=== PATIENT | male | born 1955 | race Caucasian/White ===

== ENCOUNTER → 2016-05-06 | Outpatient (CLI) | payer OTHER ==
[~2016-05-06] MED LIST: ANSS RE; BND25CL PO; DOCU100C31 PO; FLUP10TA PO; IBUP-1427 PO; LEVO125T4 PO; MOUTHWASH; MULT-506 PO; PHENSUP RE; PRAMCRE2; PRAMCRE2 TOP; TAMS0.4C38 PO; [UNRECOGNIZED DRUG - CODE]; prolixin IM
--- NOTE | 2016-05-06 12:46 | DIAGNOSTIC IMAGING REPORT ---
PET/CT HISTORY: Malignant neoplasm of anus. TECHNIQUE: PET/CT was performed from the base of the skull through the pelvis following the intravenous administration of 12.48 mCi of F18-FDG. Non-contrast CT imaging was performed over the same range without breath-hold for attenuation correction of PET images and anatomic correlation, but not for primary interpretation as it is not of standard diagnostic quality. CT DOSE: COMPARISON: None. FINDINGS: HEAD AND NECK: There is no FDG-avid disease or significant lymphadenopathy in the imaged portions of the head and the neck. Mild FDG uptake within the thyroid gland is likely physiologic. CHEST: There is no FDG-avid disease in the chest. There is no axillary, mediastinal, or hilar lymphadenopathy. There is no pleural or pericardial effusion. There is no air-space. Mild emphysema. There is a 6 x 4 mm nodule within the right middle lobe on image 103. This does not demonstrate abnormal FDG uptake but is likely below the threshold for PET imaging. No FDG avid pulmonary nodules are identified. ABDOMEN/PELVIS: Below the diaphragm, tracer is distributed physiologically in the gastrointestinal and genitourinary tracts. There is no significant lymphadenopathy. There is intense FDG uptake with the abnormal thickening of the distal rectum/anus. This is consistent with the patient's history of malignancy. The FDG avid mass measures a total length of 7.8 cm. Bladder is mildly distended. No pelvic lymphadenopathy identified. Moderate well-formed stool seen throughout the colon. Cholelithiasis.. MUSCULOSKELETAL: There is no FDG-avid or destructive bone lesion. IMPRESSION: 1. An intense FDG avid 7.8 cm mass at the distal rectum/anus consistent with the patient's history of malignancy. 2. An indeterminate 6 x 4 mm nodule within the right middle lobe which does not demonstrate abnormal FDG uptake. However, this could be below the threshold for PET imaging. Six-month chest CT follow-up is recommended to ensure stability. 3. Otherwise, no evidence for distant/metastatic disease. Electronically signed by: Issac Harris M.D. 05/06/2016 12:45 PM Dictated Date/Time: 05/06/2016 12:27 PM
== END | disposition home or self-care (01) ==
LOC: C.PET 08:49
DX: C21.0 Malignant neoplasm of anus, unspecified (principal); R91.8 Other nonspecific abnormal finding of lung field

== ENCOUNTER → 2016-05-17 | Outpatient (CLI) | payer OTHER ==
[~2016-05-17] VITALS: Ht 175.3 cm; Wt 71.5 kg
[2016-05-17 08:02] VITALS: BP 128/77; PULSE 76; TEMP 37; O2SAT 95
--- NOTE | 2016-05-17 10:02 | Radiation Oncology Consult ---
Radiation Oncology Consult Date / Reason May 17, 2016. Physicians Primary Care Provider: Waldo Schmidt PA-C at [facility] Medical Oncologist: Dr. Miller Radiation Oncologist: Dr. Chano Lopez Surgeon: Dr. Peguero Other Providers: Dr. 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 Santana in consultation at the request of the correctional facility and Dr. Toño Miller. The patient was accompanied by 2 correctional facility guards. ECOG PS: 0 Mr. Santana is a 60-year-old gentleman who recently presented with intermittent rectal bleeding for several days. The patient was initially thought to have hemorrhoids issues and the patient was to undergo resection of the hemorrhoids by Dr. Calhoun at [facility] on 04/12/2016 however the final pathology revealed invasive squamous cell carcinoma that was p16 positive. As per other medical records, the patient did go on to have a rigid sigmoid proctoscopy which did do not reveal any further evidence of disease. The patient subsequently did have a PET/CT scan completed on 05/06/2016 which reveals a 7.8 cm mass at the distal rectum/anus consistent with malignancy. Additionally, there is a 6 mm nodule within the right middle lobe with no significant FDG uptake and the radiologist recommended a six-month interval scan to confirm stability. Otherwise, there is no evidence of distant metastatic disease on the PET/CT scan. The patient was subsequently seen in consultation by Dr. Toño Miller for medical oncology was recommended consideration for pelvic chemotherapy and radiation therapy. Dr. Miller has recommended 5-FU and mitomycin-C chemotherapy. We are now seeing the patient in consultation. Overall, the patient states that he does have some minimal bleeding per rectum. He states that his stool caliber has changed overall. He does he does notice some discomfort with bowel movements. Pacemaker Hx Pacemaker: No Past History Specify Any Cancer Diagnosis: Anal cancer 04/12/16 Other Pertinent Information: Hypothyroidism Paranoid Schizophrenia Hepatitis C Surgical History Surgeries & Dates: Left hernia repair Sigmoidoscopy Surgery on left index finger - machine accident Tonsils Radiation History History of Radiation Therapy: None Chemotherapy History History of Chemotherapy: None Family History Mother living 79yo breast cancer, depression, alzheimers Father living 80yo DM, HTN 1 brother living pt unsure of his health history 1 sister living healthy 1 brother living healthy Pt never had children Social History Smoking Status: Current Every Day Smoker Hx Tobacco Use In Past Year?: Yes (1 PPD since 1977) Do You Dip or Chew Tobacco: No Hx Alcohol Use: Yes (Prior to incarceration in 1999) Hx Substance Use : No (Prior to incarceration;Multpile sources.) 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, 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, 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 Marital Status: Single Allergies Coded Allergies: NO KNOWN DRUG ALLERGIES (Unverified Allergy, Unknown, ., 12/02/15) Home Medications Scheduled Diphenhydramine HCl (Diphenhydramine HCl), 25 MG PO HS Docusate Sodium (Docusate Sodium), 2 CAP PO DAILY Ibuprofen Tab (Motrin), 1 TAB PO TID Levothyroxine Sodium (Levothyroxine Sodium), 1 TAB PO DAILY Phenylephrine In Hard Fat (Ashley-Med), RE QID Tamsulosin Hcl (Flomax), 1 CAP PO DAILY [prolixin], 50 MG IM DIRECTED Scheduled PRN Phenylephrine In Hard Fat (Tronolane), 1 SUPP RE QID PRN for Hemorrhoids Zllgwnesj-Wydxbenhqxnww-Ezahsz (Preparation H), 1 APPLN TOP QID PRN for Hemorrhoids Miscellaneous Medications Ijddoslss-Izqyfsciznspz-Pfjyop (Preparation H) Review of Systems Extremities: Within Normal Limits: Yes Hx Falls: No Swelling in Legs: No Hx Deep Vein Thrombosis: No Pain in Legs while Walking: No Head: Headaches: No Dizziness: No Eyes: Within Normal Limits: Yes Hx Cataracts: No Hx Diplopia: No Hx Glaucoma: No Wear Glasses: Yes Throat: Symptoms: Difficulty Swallowing Gastrointestinal: GI Comments: Rectal spotting w/wiping;Keeps stools very loose to pass; Usual Bowel Pattern: External periarea tenderness; Use of Laxatives: No - How Often: Using stool softners, MOM;Using preparation H Use Of Enemas: No Edema: Present?: No Urinary: Symptoms: WNL Comments: 3-4 voids/night;More urgency since stopping flomax; Respiratory: Symptoms: WNL, Dry Cough Comments: AM cough;nonproductive Psychological: Symptoms: Calm Skin: Within Normal Limits: No Nutrition: Involuntary Weight Loss (lbs): 0 Home Diet: Regular diet Anyone Available To Assist: Yes Physical Exam ECOG Performance Status: 0 Height: 5 (Feet) 9.00 (Inches) 175.3 (Centimeters) 1.7526 (Meters) Weight: 157 (Pounds) 10.1 (Ounces) 71.500 (Kilograms) 10206.000 (Grams) Date Time Temp Pulse Resp B/P Pulse Ox O2 Delivery O2 Flow Rate FiO2 05/17/16 08:02 37.0 76 20 128/77 95 General Appearance: no apparent distress Head: normocephalic Eyes: normal inspection, EOMI ENT: normal ENT inspection, hearing grossly normal Respiratory/Chest: lungs clear, no respiratory distress, no accessory muscle use Cardiovascular: regular rate, rhythm, no gallop, no murmur Abdomen/GI: non tender, soft, + pertinent finding (palpable groin adenopathy noted on the left with a measurement of 1-1.5.) Back: no CVA tenderness Extremities: no pedal edema Neurologic/Psych: no motor/sensory deficits, alert, normal mood/affect Skin: warm/dry Lymphatic: + inguinal node abnormality Additional Exam Comments: Rectal examination reveals a protruding mass in the perianal area not involving the anal margin skin. This is proximally 4 x 3 cm. Very tender to palpation. Currently no rectal bleeding. The mass extends up into the rectum to the tip of the examination finger per Dr. Lopez. Pathology Pathology results: were reviewed Imaging Imaging studies: were reviewed, and pertinent findings noted below Imaging Comments Patient: TA SANTANA [id number] Address1: [facility] Rec: [id number] Address2: [address] ID: [id number] [facility] Zip: [place] [address] Date: 1955 Sex: M Room/Bed: Ref Phy: SC: SELENE Att Phy: Barbara Cheng M.D. Report #: [id number] Sindy Phy: [facility] Test: PETCTST Admit Phy: Rice Drier: GUILLERMINA Interpreting Phy: Issac Harris MD Diagnosis: C21 MALIGNANT NEOPLASM ANUS Ordering Phy: Barbara Cheng M.D. Service Date: 05/06/16 Admit Date: 05/06/16 MNE: [id number] CONF: DICTATED BY: Issac Harris M.D.]] CC: Barbara Cheng M.D. [facility]: [~ rep ct add3]] PET/CT HISTORY: Malignant neoplasm of anus. TECHNIQUE: PET/CT was performed from the base of the skull through the pelvis following the intravenous administration of 12.48 mCi of F18-FDG. Non-contrast CT imaging was performed over the same range without breath-hold for attenuation correction of PET images and anatomic correlation, but not for primary interpretation as it is not of standard diagnostic quality. CT DOSE: COMPARISON: None. FINDINGS: HEAD AND NECK: There is no FDG-avid disease or significant lymphadenopathy in the imaged portions of the head and the neck. Mild FDG uptake within the thyroid gland is likely physiologic. CHEST: There is no FDG-avid disease in the chest. There is no axillary, mediastinal, or hilar lymphadenopathy. There is no pleural or pericardial effusion. There is no air-space. Mild emphysema. There is a 6 x 4 mm nodule within the right middle lobe on image 103. This does not demonstrate abnormal FDG uptake but is likely below the threshold for PET imaging. No FDG avid pulmonary nodules are identified. ABDOMEN/PELVIS: Below the diaphragm, tracer is distributed physiologically in the gastrointestinal and genitourinary tracts. There is no significant lymphadenopathy. There is intense FDG uptake with the abnormal thickening of the distal rectum/anus. This is consistent with the patient's history of malignancy. The FDG avid mass measures a total length of 7.8 cm. Bladder is mildly distended. No pelvic lymphadenopathy identified. Moderate well-formed stool seen throughout the colon. Cholelithiasis.. MUSCULOSKELETAL: There is no FDG-avid or destructive bone lesion. IMPRESSION: 1. An intense FDG avid 7.8 cm mass at the distal rectum/anus consistent with the patient's history of malignancy. 2. An indeterminate 6 x 4 mm nodule within the right middle lobe which does not demonstrate abnormal FDG uptake. However, this could be below the threshold for PET imaging. Six-month chest CT follow-up is recommended to ensure stability. 3. Otherwise, no evidence for distant/metastatic disease. Electronically signed by: Issac Harris M.D. 05/06/2016 12:45 PM Dictated Date/Time: 05/06/2016 12:27 PM Assessment & Recommendations Mr. Santana is a 60-year-old gentleman who presents with locally advanced anal cancer (T3N0M0, stage IIB). The patient was seen in consultation by Dr. Toño Miller from medical oncology who is recommended pelvic chemotherapy and radiation therapy. We are now seeing the patient in consultation discuss the role of radiation therapy. Today, we did discuss the NCCN guidelines for the management of definitive anal cancer. I have recommended pelvic chemotherapy and radiation therapy in agreement with Dr. Toño Miller. We will bring the patient back for CT simulation for treatment planning. In great detail, we did discuss the indications, alternatives, benefits, risks and side effects of external beam radiation therapy to the pelvis. We did discuss the short-term side effects which are including but not limited to, skin erythema, skin breakdown, desquamation, moist desquamation, fistula formation, increased urinary symptoms, increased bowel, symptoms diarrhea. We did also discussed long-term side effects which are including, but not limited to, rectal incontinence, urinary incontinence, secondary malignancy, decreased sexual function, impotency, fistula formation, skin tear, bleeding, infection, wound healing issues. We did also reviewed the treatment procedures involved with radiation therapy. The patient understands and is willing to consent to treatment. The patient had multiple questions which were answered to their full satisfaction. Thank you for allowing us to participate in the care of this patient. This chart was completed in part utilizing [employer] Speech Voice Recognition software. Attempts were made to minimize the grammatical errors, random word insertions, pronoun errors and incomplete sentences. Any formal questions or concerns about the content, text or information contained within the body of this dictation should be directly addressed to the provider for clarification. Chano Lopez MD Department of Radiation Oncology [facility] Konstantin Jha [facility] Total Time In Consultation I spent 20 minutes speaking the patient performing examination. I spent 15 minutes reviewing information please this note. AK I spent 30 minutes examining and counseling the patient. I spent 15 minutes completing this note. 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
== END | disposition home or self-care (01) ==
LOC: C.ONC 08:52
PROVIDERS: ATTEND Internal Medicine Hematology & Oncology
DX: C44.520 Squamous cell carcinoma of anal skin (principal)

== ENCOUNTER → 2016-06-07 | Day surgery (SDC) | payer OTHER ==
[~2016-06-07] VITALS: Ht 172.7 cm; Wt 72.0 kg
[~2016-06-07] MED LIST changes: -FLUP10TA PO
[2016-06-07 08:35] VITALS: BP 136/83; PULSE 77; TEMP 37.1; O2SAT 96; Ht 172.7 cm; Wt 72.0 kg
== END | disposition home or self-care (01) ==
LOC: C.MTU 08:35
PROVIDERS: ATTEND Internal Medicine Critical Care Medicine
DX: C18.9 Malignant neoplasm of colon, unspecified (principal); C61 Malignant neoplasm of prostate; E03.9 Hypothyroidism, unspecified; F20.9 Schizophrenia, unspecified; K59.00 Constipation, unspecified; K62.5 Hemorrhage of anus and rectum; K64.9 Unspecified hemorrhoids; N40.0 Benign prostatic hyperplasia without lower urinary tract symptoms

== ENCOUNTER 2016-06-10 09:43 | Inpatient (IN) | payer OTHER ==
[~2016-06-10] VITALS: Ht 172.7 cm; Wt 69.8 kg
[2016-06-10] VITALS (10 sets, daily range): BP systolic 92–149; BP diastolic 54–83; PULSE 54–61; TEMP 36.6–36.8; O2SAT 95–98
[~2016-06-10 09:43] MED LIST changes: -ANSS RE; -MOUTHWASH; -MULT-506 PO; -PHENSUP RE; -TAMS0.4C38 PO
--- NOTE | 2016-06-10 13:15 | History and Physical ---
History & Physical Date & Time of Service: Jun 10, 2016 at 13:01 Chief Complaint: Anal Cancer, Chemotherapy Primary Care Physician: Barbara Cheng M.D. History of Present Illness Source: patient This is a 60 yo M with PMHx of schizophrenia, anal carcinoma, hypothyroidism, constipation, hemorrhoids, BPH w/ LUTS without obstruction who presents from OSH for chemotherapy regimen. He is incarcerated at [facility] . He had a PICC line placed on 06/07/16 in his RUE. The patient is up to the floor after his first treatment of radiation therapy, states it went well. He denies any complaints currently. He has a history of bowel movements streaked with blood, last BM was this morning. He denies any abdominal pain, cramping, nausea or vomiting. He's anticipating starting chemotherapy tonight. Past Medical/Surgical History Medical Problems: Anal Carcinoma Schizophrenia Hypothyroidism Constipation Hemorrhoids BPH w/ LUTs Status: Chronic Social History Smoking Status: Current Every Day Smoker Smokeless Tobacco Use: No Alcohol Use: none Drug Use: none Marital Status: single Housing status: other (incarcerated) Occupational Status: other (detained) Allergies Coded Allergies: NO KNOWN DRUG ALLERGIES (Unverified Allergy, Unknown, ., 06/07/16) Home Medications Scheduled Diphenhydramine HCl (Diphenhydramine HCl), 25 MG PO HS Docusate Sodium (Docusate Sodium), 2 CAP PO DAILY Ibuprofen Tab (Motrin), 1 TAB PO TID Levothyroxine Sodium (Levothyroxine Sodium), 1 TAB PO DAILY Sdsfptekm-Qvtalbsdthttd-Erfhgn (Hemorrhoidal), prn [prolixin], 25 MG IM q2wks Scheduled PRN Eofyfkram-Awtpyhelvtsex-Qaiory (Preparation H), 1 APPLN TOP QID PRN for Hemorrhoids Miscellaneous Medications Vpiaouxhd-Muufuijbitmce-Cjkrao (Preparation H) Review of Systems Constitutional: No chills, No fatigue, No fever, No sweats Eyes: No redness ENT: No sore throat, No trouble swallowing Respiratory: No cough, No shortness of breath Cardiovascular: No chest pain, No palpitations Abdomen: + GI bleeding (See HPI), No constipation, No diarrhea, No nausea, No pain, No vomiting Musculoskeletal: No calf pain, No joint pain Genitourinary - Male: No dysuria, No hematuria Psychiatric: + problem reported (schitzophrenia) Endocrine: No excessive thirst, No excessive urination, No fatigue Integumentary: No itch, No rash Physical Exam Vital Signs Date Time Temp Pulse Resp B/P Pulse Ox O2 Delivery O2 Flow Rate FiO2 06/10/16 12:44 36.6 61 18 92/54 96 Room Air General Appearance: WD/WN, no apparent distress, + thin Head: normocephalic, atraumatic Eyes: PERRL, EOMI ENT: hearing grossly normal, pharynx normal, + pertinent finding (poor dentition, mucous membranes moist) Neck: supple, no JVD Respiratory/Chest: chest non-tender, lungs clear, no respiratory distress, no accessory muscle use Cardiovascular: regular rate, rhythm, no edema, no JVD, no murmur Abdomen/GI: normal bowel sounds, non tender, soft, no organomegaly Back: normal inspection Extremities/Musculoskelatal: normal inspection, no calf tenderness Neurologic/Psych: alert, normal reflexes, oriented x 3 Skin: normal color, warm/dry Impression Assessment and Plan This is a 60 yo M with PMHx of schizophrenia, anal carcinoma, hypothyroidism, constipation, hemorrhoids, BPH w/ LUTS without obstruction who presents from OSH for chemotherapy regimen. He is incarcerated at [facility] . Anal Carcinoma Constipation Hemorrhoids - Oncology consulted - The patient follows with Genia Trejo as an outp - Scheduled to start mitomycin and 5-FU tonight - will need 4 days of the 5-FU because this requires a pump and he cannot have this in the penitentiary. - XRT started today. Will ask oncology about how long the course of radiation will be. - Continue colace prn for bowels, will add miralax and dulcolax prn - Regular diet - Antiemetics with zofran, compazine - Pt was counselled on getting radiation induced dermatitis, can use cream to alleviate pain/soreness if it develops. - PET CT was reviewed IMPRESSION: 1. An intense FDG avid 7.8 cm mass at the distal rectum/anus consistent with the patient's history of malignancy. 2. An indeterminate 6 x 4 mm nodule within the right middle lobe which does not demonstrate abnormal FDG uptake. However, this could be below the threshold for PET imaging. Six-month chest CT follow-up is recommended to ensure stability. 3. Otherwise, no evidence for distant/metastatic disease. Hypothyroidism - Continue levothyroxine 125 mcg daily Schitzophrenia - Receives prolixin deconate 37.5 mg as an outpatient every other week. Last injection was on 06/05. BPH wih LUTS without obstruction - Continue SURGICAL DENTAL ASSISTANT medications DVT PPX: Teds, SCDs Disposition: From correctional institution, return after chemotherapy course and when medically stable. PA Physician Supervision Note: I interviewed and examined the patient. Discussed with Fide Brown PAC and agree with findings and plan as documented in the note. Any exceptions or clarifications are listed here: None PT here for chemo for anal carcinoma, is also involved Rad Onc XRT no active complaints vss abd is soft and non tender For chemo per protocol Documented By: Abiodun Shaver Level of Care Med/Surg Resuscitation Status FULL RESUSCITATION VTE Prophylaxis VTE Risk Assessment Done? Y/N: Yes Risk Level: Low Given or contraindicated: T.E.D. Stockings, SCD's
[2016-06-10] MEDS ORDERED: ONDANSETRON INJ 2 MG/ML 2 ML VIAL IV PRN (14:45)
[2016-06-10] MEDS ORDERED: ACETAMINOPHEN 500 MG TAB PO PRN (14:45)
[2016-06-10] MEDS ORDERED: PROMETHAZINE HCL INJ 25 MG in SODIUM CHLORIDE 0.9% 50ML 50 ML IV PRN (14:45)
[2016-06-10] MEDS ORDERED: BISACODYL 5 MG TABEC PO PRN (14:45)
[2016-06-10] MEDS ORDERED: POLYETHYLENE (MIRALAX) 17 GM PACK PO PRN (14:45)
--- NOTE | 2016-06-10 15:15 | Oncology Consultation ---
Oncology/Heme Consultation Date of Consultation: Jun 10, 2016. Attending Physician: Shola Rascon D.O. Reason for Consultation: Squamous cell invasive anal carcinoma History of Present Illness is a 60-year-old inmate at [facility] that states that he has had hemorrhoidal issues for the past 2 years. Bleeding was noted to persist and according to notes the lesion around the anus became much larger. A biopsy did show invasive squamous cell carcinoma. The notes also reflect that originates sigmoidoscopy was performed to 24 cm revealing no further abnormalities. A PET/CT scan confirmed a 7.8 cm mass in the distal rectal/anal area and he is admitted now for systemic therapy with radiation. Radiation has begun today. His past medical history is really unremarkable other than a history of schizophrenia. Past Medical/Surgical History Anal carcinoma Family History Negative for history of cancer in the family Social History Negative for significant smoking or alcohol usage. He does admit to IV drug abuse 17 years ago. He states he has been HIV tested and is negative. The timing of that test is unknown. Smoking Status: Current Every Day Smoker Housing Status: other Occupation Status: other (detained) Allergies Coded Allergies: NO KNOWN DRUG ALLERGIES (Unverified Allergy, Unknown, ., 06/07/16) Home Medications Scheduled Diphenhydramine HCl (Diphenhydramine HCl), 25 MG PO HS Docusate Sodium (Docusate Sodium), 2 CAP PO DAILY Ibuprofen Tab (Motrin), 1 TAB PO TID Levothyroxine Sodium (Levothyroxine Sodium), 1 TAB PO DAILY Sapaoyyju-Yrkccnhvimlfm-Mtusfo (Hemorrhoidal), prn [prolixin], 25 MG IM q2wks Scheduled PRN Mdongdjax-Nhlojueiepjlu-Jlfpzq (Preparation H), 1 APPLN TOP QID PRN for Hemorrhoids Miscellaneous Medications Pfosudtga-Mdhgdaujvxqzf-Fihfce (Preparation H) Current Inpatient Medications Current Inpatient Medications Medications (Trade) Dose Ordered Sig/Lucho Route Start Time Stop Time Status Last Admin Dose Admin Diphenhydramine HCl (Benadryl Cap) 25 mg HS PO 06/10/16 21:00 07/10/16 20:59 Docusate Sodium (coLACE CAP) 200 mg DAILY PO 06/11/16 08:00 07/11/16 07:59 Ibuprofen (Motrin Tab) 600 mg TID PO 06/10/16 14:00 07/10/16 13:59 Levothyroxine Sodium (Synthroid Tab) 125 mcg DAILYBB PO 06/11/16 06:30 07/11/16 06:29 Miscellaneous Information (Order Awaiting Action) 1 ea QS N/A 06/10/16 13:15 07/10/16 13:14 Ondansetron HCl 4 mg 4 mg Q4H PRN IV 06/10/16 14:45 07/10/16 14:44 Promethazine HCl/ Sodium Chloride (Phenergan Inj/ Nss 50ml) 51 ml @ 204 mls/hr Q6H PRN IV 06/10/16 14:45 07/10/16 14:44 Acetaminophen (Tylenol Tab) 500 mg Q4 PRN PO 06/10/16 14:45 07/10/16 14:44 Polyethylene (Miralax Powder Packet) 17 gm DAILY PRN PO 06/10/16 14:45 07/10/16 14:44 Bisacodyl (Dulcolax Tab) 5 mg DAILY PRN PO 06/10/16 14:45 07/10/16 14:44 Ondansetron HCl (Zofran Tab) 16 mg TODAY@1700 PO 06/10/16 17:00 06/10/16 23:00 Dexamethasone 10 mg 10 mg TODAY@1700 PO 06/10/16 17:00 06/10/16 23:00 Mitomycin 18 mg/ Sodium Chloride 118 ml @ 236 mls/hr TODAY@1730 IV 06/10/16 17:30 06/10/16 19:00 Fluorouracil/ Sodium Chloride (Fluorouracil/ Nss 1000ml) 1,038 ml @ 43.285 mls/ hr DAILY@1800 IV 06/10/16 18:00 06/14/16 17:59 Review of Systems Constitutional: Negative for weight loss, night sweats, or fever Eyes: Negative for event change of vision ENT: Negative for epistaxis, nasal discharge, sore throat, or deafness Cardiovascular: Negative for chest pain, palpitations, dizziness, diaphoresis Respiratory: Negative for new shortness of breath,hemoptysis, or purulent cough Gastrointestinal: Negative for diarrhea, hematemesis, melena, nausea, vomiting , or dyspepsia Integumentary (skin): Negative for rash or jaundice discoloration Genitourinary: Negative for urinary frequency, hematuria, or dysuria Neurological: Negative for weakness, seizure activity, headache, or dizziness Lymphatic/Hematologic: Negative for petechiae, bleeding or new adenopathy Musculoskeletal: Negative for new joint or back pain Allergic/Immunologic: Negative for unusual rash or pruritis. Physical Exam Date Time Temp Pulse Resp B/P Pulse Ox O2 Delivery O2 Flow Rate FiO2 06/10/16 14:38 36.7 54 16 112/72 97 06/10/16 13:30 36.6 61 18 92/54 Room Air 06/10/16 12:44 36.6 61 18 92/54 96 Room Air Constitutional: vitals are stable. Eyes: Eyes are BEYN EOMI without conjuctival erythema or icterus. ENT: External examination was negative for masses. Neck: Negative for masses or palpable thyromegaly Respiratory: Lung sounds were generally clear bilaterally Cardiovascular: Heart was RRR without significant murmur, gallops aoe rubs Gastrointestinal: No palpable hepatic or splenomegaly. The abdomen was soft with normal bowel sounds. Lymphatic system: there was no palpable peripheral lymphadenopathy Musculoskeletal System: The musculoskeletal system seemed concordant with age. Skin: The skin was negative for jaundice. Neurologic exam: The exam was negative for any focal findings. Deep tendon reflexes were equal and symmetrical. Psychiatric exam: Was essentially negative with normal mood and effect. Extremities: Negative for edema or erythema Assessment & Plan Anal carcinoma squamous cell invasive carcinoma that appears to be confined to the anal area. Recent bloodwork concluding CBC general chemistries are acceptable. A PICC line is in place in the right arm. Radiation has begun today and therapy with a 4 day infusion of 5-fluorouracil along with the one day of mitomycin was written today. Consent has been signed. I reviewed the drugs with him as given again IV with the major potential side effects of nausea diarrhea risk of fever or infection bleeding and hair loss and skin rash. His next therapy will be with 5- FU alone in about 4 weeks. He'll have a follow-up in our clinic
[2016-06-10 16:12] LABS: BASO % 0.3 %; BASO ABS # 0.02 K/uL (0-0.2); COMPLETE YES; HEMATOCRIT 37.2 % (42-52); IG% 0.3 %; LYMPH ABS # 1.76 K/uL (1.2-3.4); MEAN CELL VOLUME 83.8 fL (80-100); MEAN CORPUSCULAR HEMOGLOBIN 28.6 pg (25-34); MEAN CORPUSCULAR HGB CONC 34.1 g/dl (32-36); MEAN PLATELET VOLUME 8.1 fL (7.4-10.4); MONO % 10.4 %; PLATELET COUNT 186 K/uL (130-400); RED BLOOD COUNT 4.44 M/uL (4.7-6.1); WHITE BLOOD COUNT 6.53 K/uL (4.8-10.8)
[2016-06-10 16:35] LABS: BLOOD UREA NITROGEN 10 mg/dl (7-18); BUN/CREATININE RATIO 16.2 (10-20); CALCIUM 8.9 mg/dl (8.5-10.1); CARBON DIOXIDE 26 mmol/L (21-32); CHLORIDE 105 mmol/L (98-107); CREATININE 0.61 mg/dl (0.60-1.40); GLUCOSE 103 mg/dl (70-99); POTASSIUM 4.1 mmol/L (3.5-5.1); SODIUM 140 mmol/L (136-145)
[2016-06-10 16:55] LABS: PARTIAL THROMBOPLASTIN RATIO 1.1; PROTHROMBIN TIME (PATIENT) 10.7 SECONDS (9.0-12.0)
[2016-06-10] MEDS ORDERED: DEXAMETHASONE 4 MG TAB PO SCH (17:00)
[2016-06-10] MEDS ORDERED: ONDANSETRON 8 MG TAB PO SCH (17:00)
[2016-06-10] MEDS: IBUPROFEN 600 MG TAB PO SCH ×2 (17:11→20:26)
[2016-06-10] MEDS ORDERED: MITOMYCIN FOR IV SCH (17:30)
[2016-06-10] MEDS ORDERED: SODIUM CHLORIDE 0.9% IV SCH (17:30)
[2016-06-10] MEDS: SODIUM CHLORIDE 0.9% IV SCH (20:14)
[2016-06-10] MEDS: FLUOROURACIL IV SCH (20:14)
[2016-06-11] VITALS (7 sets, daily range): BP systolic 104–119; BP diastolic 20–72; PULSE 51–70; TEMP 36.7–36.9; O2SAT 95–98; Ht 172.7 cm; Wt 69.8 kg
[2016-06-11] MEDS: LEVOTHYROXINE 125 MCG TAB PO SCH (06:50)
[2016-06-11] MEDS: IBUPROFEN 600 MG TAB PO SCH ×3 (07:17→19:26)
--- NOTE | 2016-06-11 08:07 | Hematology/Oncology Prog Note ---
Hematology/Onc Progress Note Date of Service Jun 11, 2016. Diagnoses Anal carcinoma Medications Medications Administered Medications (Trade) Dose Ordered Sig/Lucho Route Start Time Stop Time Status Last Admin Dose Admin Diphenhydramine HCl (Benadryl Cap) 25 mg HS PO 06/10/16 21:00 07/10/16 20:59 06/10/16 21:53 25 MG Ibuprofen (Motrin Tab) 600 mg TID PO 06/10/16 14:00 07/10/16 13:59 06/11/16 07:17 600 MG Levothyroxine Sodium (Synthroid Tab) 125 mcg DAILYBB PO 06/11/16 06:30 07/11/16 06:29 06/11/16 06:50 125 MCG Ondansetron HCl (Zofran Tab) 16 mg TODAY@1700 PO 06/10/16 17:00 06/10/16 23:00 DC 06/10/16 17:10 16 MG Dexamethasone 10 mg 10 mg TODAY@1700 PO 06/10/16 17:00 06/10/16 23:00 DC 06/10/16 17:11 10 MG Mitomycin 18 mg/ Sodium Chloride 118 ml @ 236 mls/hr TODAY@1730 IV 06/10/16 17:30 06/10/16 19:00 DC 06/10/16 18:49 236 MLS/HR Fluorouracil/ Sodium Chloride (Fluorouracil/ Nss 1000ml) 1,038 ml @ 43.285 mls/ hr DAILY@1800 IV 06/10/16 18:00 06/14/16 17:59 06/10/16 20:14 43.285 MLS/HR Subjective He is doing well. Continues infused 5-FU ongoing mitomycin given yesterday and radiation will continue. He really offers no new complaints. Review of Systems: Constitutional: Negative for weight loss, night sweats, or fever Eyes: Negative for event change of vision Cardiovascular: Negative for chest pain, palpitations, dizziness, diaphoresis Respiratory: Negative for new shortness of breath,hemoptysis, or purulent cough Gastrointestinal: Negative for diarrhea, hematemesis, melena, nausea, vomiting , or dyspepsia Integumentary (skin): Negative for rash or jaundice discoloration Genitourinary: Negative for urinary frequency, hematuria, or dysuria Neurological: Negative for weakness, seizure activity, headache, or dizziness Lymphatic/Hematologic: Negative for petechiae, bleeding or new adenopathy Musculoskeletal: Negative for new joint or back pain Allergic/Immunologic: Negative for unusual rash or pruritis. Vital Signs Vital Signs Past 12 Hours Date Time Temp Pulse Resp B/P Pulse Ox O2 Delivery O2 Flow Rate FiO2 06/11/16 07:23 36.7 61 18 106/63 95 Room Air 06/11/16 04:14 36.8 66 20 107/68 96 Room Air 06/11/16 00:27 36.7 51 20 114/72 97 Room Air 06/11/16 00:14 Room Air 06/10/16 21:32 Room Air 06/10/16 20:15 36.7 20 149/83 98 Room Air Physical Exam Constitutional: vitals are stable. Eyes: Eyes are BENY EOMI without conjuctival erythema or icterus. ENT: External examination was negative for masses. Neck: Negative for masses or palpable thyromegaly Respiratory: Lung sounds were generally clear bilaterally Cardiovascular: Heart was RRR without significant murmur, gallops aoe rubs Gastrointestinal: No palpable hepatic or splenomegaly. The abdomen was soft with normal bowel sounds. Lymphatic system: there was no palpable peripheral lymphadenopathy Musculoskeletal System: The musculoskeletal system seemed concordant with age. Skin: The skin was negative for jaundice. Neurologic exam: The exam was negative for any focal findings. Deep tendon reflexes were equal and symmetrical. Psychiatric exam: Was essentially negative with normal mood and effect. Extremities: Negative for edema erythema Laboratory Last 24 Hours Test 06/10/16 15:36 06/10/16 15:59 06/11/16 07:49 Prothrombin Time 10.7 SECONDS Prothromb Time International Ratio 1.0 Activated Partial Thromboplast Time 28.3 SECONDS Partial Thromboplastin Ratio 1.1 White Blood Count 6.53 K/uL Red Blood Count 4.44 M/uL Hemoglobin 12.7 g/dL Hematocrit 37.2 % Mean Corpuscular Volume 83.8 fL Mean Corpuscular Hemoglobin 28.6 pg Mean Corpuscular Hemoglobin Concent 34.1 g/dl Platelet Count 186 K/uL Mean Platelet Volume 8.1 fL Neutrophils (%) (Auto) 58.0 % Lymphocytes (%) (Auto) 27.0 % Monocytes (%) (Auto) 10.4 % Eosinophils (%) (Auto) 4.0 % Basophils (%) (Auto) 0.3 % Neutrophils # (Auto) 3.79 K/uL Lymphocytes # (Auto) 1.76 K/uL Monocytes # (Auto) 0.68 K/uL Eosinophils # (Auto) 0.26 K/uL Basophils # (Auto) 0.02 K/uL RDW Standard Deviation 47.9 fL RDW Coefficient of Variation 15.6 % Immature Granulocyte % (Auto) 0.3 % Immature Granulocyte # (Auto) 0.02 K/uL Sodium Level 140 mmol/L Potassium Level 4.1 mmol/L Chloride Level 105 mmol/L Carbon Dioxide Level 26 mmol/L Anion Gap 9.0 mmol/L Blood Urea Nitrogen 10 mg/dl Creatinine 0.61 mg/dl Estimated GFR () 127.6 Estimated GFR (Non- 110.1 BUN/Creatinine Ratio 16.2 Random Glucose 103 mg/dl Calcium Level 8.9 mg/dl Assessment & Plan Anal carcinoma receiving 5-FU and mitomycin along with concurrent radiation therapy. Radiation therapy will continue today in addition. His baseline blood work is acceptable as is his exam today. Pain is not an issue. The 5-FU for 96 hours.
[2016-06-11] MEDS: DOCUSATE SODIUM 100 MG CAP PO SCH (08:16)
[2016-06-11 08:51] LABS: HEMATOCRIT 39.6 % (42-52); IG% 0.1 %; LYMPH % 7.9 %; LYMPH ABS # 0.72 K/uL (1.2-3.4); MEAN CELL VOLUME 81.5 fL (80-100); MEAN PLATELET VOLUME 7.9 fL (7.4-10.4); MONO % 3.1 %; NEUT % 88.9 %; PLATELET COUNT 197 K/uL (130-400); RED BLOOD COUNT 4.86 M/uL (4.7-6.1); WHITE BLOOD COUNT 9.14 K/uL (4.8-10.8)
[2016-06-11 09:12] LABS: BUN/CREATININE RATIO 12.7 (10-20); CALCIUM 9.4 mg/dl (8.5-10.1); CREATININE 0.83 mg/dl (0.60-1.40); POTASSIUM 4.2 mmol/L (3.5-5.1)
[2016-06-11 09:36] LABS: COMPLETE YES; MEAN CORPUSCULAR HGB CONC 34.3 g/dl (32-36)
--- NOTE | 2016-06-11 11:35 | Hospitalist Progress Note ---
Hospitalist Progress Note Date of Service Jun 11, 2016. Subjective Pt evaluation today including: conversation w/ patient, physical exam, chart review, lab review, review of studies, review of inpatient medication list Patient is undergoing chemo and radiation. Oncology is following. Patient reports no pain at this time. No nausea or vomiting. No chest pain and no SOB. Additional Comments: A 10 system review was performed and all were negative. Positives were placed in the subjective section. Objective Vital Signs Date Time Temp Pulse Resp B/P Pulse Ox O2 Delivery O2 Flow Rate FiO2 06/11/16 11:13 36.9 70 20 110/65 98 Room Air 06/11/16 08:00 Room Air 06/11/16 07:23 36.7 61 18 106/63 95 Room Air 06/11/16 04:14 36.8 66 20 107/68 96 Room Air 06/11/16 00:27 36.7 51 20 114/72 97 Room Air 06/11/16 00:14 Room Air 06/10/16 21:32 Room Air 06/10/16 20:15 36.7 20 149/83 98 Room Air 06/10/16 19:47 36.6 55 20 133/74 97 Room Air 06/10/16 19:09 36.7 60 20 110/69 95 Room Air 06/10/16 19:00 36.8 54 20 109/67 96 06/10/16 17:42 36.6 58 20 114/71 98 06/10/16 17:00 97 Room Air 06/10/16 15:49 36.7 58 18 121/73 97 Room Air 06/10/16 14:38 36.7 54 16 112/72 97 06/10/16 13:30 36.6 61 18 92/54 Room Air 06/10/16 12:44 36.6 61 18 92/54 96 Room Air Physical Exam Notes: GEN: Awake, alert, and oriented x 3. Not in acute distress HEENT: Tm's intact, no inflammation, EOMI, PERRLA, MMM Neck: Soft, supple Lungs: CTA b/l, no r/r/w Heart: REG, nrl S1S2 without murmurs, rubs or gallops Abdomen: Soft, NT, ND, + BS EXT: No C/C/E NEURO: CN's II-XII grossly intact, non-focal Skin: warm, dry, no rashes PSYCH: pleasant, cooperative. Laboratory Results Last 24 Hours Test 06/10/16 15:36 06/10/16 15:59 06/11/16 08:31 Prothrombin Time 10.7 SECONDS Prothromb Time International Ratio 1.0 Activated Partial Thromboplast Time 28.3 SECONDS Partial Thromboplastin Ratio 1.1 White Blood Count 6.53 K/uL 9.14 K/uL Red Blood Count 4.44 M/uL 4.86 M/uL Hemoglobin 12.7 g/dL 13.6 g/dL Hematocrit 37.2 % 39.6 % Mean Corpuscular Volume 83.8 fL 81.5 fL Mean Corpuscular Hemoglobin 28.6 pg 28.0 pg Mean Corpuscular Hemoglobin Concent 34.1 g/dl 34.3 g/dl Platelet Count 186 K/uL 197 K/uL Mean Platelet Volume 8.1 fL 7.9 fL Neutrophils (%) (Auto) 58.0 % 88.9 % Lymphocytes (%) (Auto) 27.0 % 7.9 % Monocytes (%) (Auto) 10.4 % 3.1 % Eosinophils (%) (Auto) 4.0 % 0.0 % Basophils (%) (Auto) 0.3 % 0.0 % Neutrophils # (Auto) 3.79 K/uL 8.13 K/uL Lymphocytes # (Auto) 1.76 K/uL 0.72 K/uL Monocytes # (Auto) 0.68 K/uL 0.28 K/uL Eosinophils # (Auto) 0.26 K/uL 0.00 K/uL Basophils # (Auto) 0.02 K/uL 0.00 K/uL RDW Standard Deviation 47.9 fL 45.9 fL RDW Coefficient of Variation 15.6 % 15.3 % Immature Granulocyte % (Auto) 0.3 % 0.1 % Immature Granulocyte # (Auto) 0.02 K/uL 0.01 K/uL Sodium Level 140 mmol/L 137 mmol/L Potassium Level 4.1 mmol/L 4.2 mmol/L Chloride Level 105 mmol/L 102 mmol/L Carbon Dioxide Level 26 mmol/L 27 mmol/L Anion Gap 9.0 mmol/L 8.0 mmol/L Blood Urea Nitrogen 10 mg/dl 11 mg/dl Creatinine 0.61 mg/dl 0.83 mg/dl Estimated GFR () 127.6 112.4 Estimated GFR (Non- 110.1 97.0 BUN/Creatinine Ratio 16.2 12.7 Random Glucose 103 mg/dl 165 mg/dl Calcium Level 8.9 mg/dl 9.4 mg/dl Est Creatinine Clear Calc Drug Dose 93.8 ml/min Assessment and Plan 1) Anal CA - undergoing inpatient chemo. Oncology note reports 96 hours of 5- FU. also receiving radiation while in house. 2) BPH - No new issues with this. 3) Schizophrenia - receives Prolixin IM q 2 weeks 4) Hypothyroidism - continue levothyroxine. DVT prophylaxis - TEDs and SCDs.
[2016-06-11] MEDS: FLUOROURACIL IV SCH (20:53)
[2016-06-11] MEDS: SODIUM CHLORIDE 0.9% IV SCH (20:53)
[2016-06-12] VITALS (8 sets, daily range): BP systolic 100–119; BP diastolic 60–70; PULSE 62–86; TEMP 36.5–36.8; O2SAT 94–97
[2016-06-12 05:33] LABS: BASO % 0.3 %; BASO ABS # 0.02 K/uL (0-0.2); COMPLETE YES; EOS % 1.2 %; HEMATOCRIT 35.8 % (42-52); IG% 0.1 %; LYMPH % 23.3 %; MEAN CELL VOLUME 83.8 fL (80-100); MEAN CORPUSCULAR HEMOGLOBIN 28.1 pg (25-34); MEAN CORPUSCULAR HGB CONC 33.5 g/dl (32-36); MEAN PLATELET VOLUME 8.3 fL (7.4-10.4); MONO % 7.5 %; NEUT % 67.6 %; PLATELET COUNT 166 K/uL (130-400); RED BLOOD COUNT 4.27 M/uL (4.7-6.1); WHITE BLOOD COUNT 7.31 K/uL (4.8-10.8)
[2016-06-12 06:12] LABS: BUN/CREATININE RATIO 20.4 (10-20); CREATININE 0.76 mg/dl (0.60-1.40); POTASSIUM 4.2 mmol/L (3.5-5.1)
[2016-06-12] MEDS: LEVOTHYROXINE 125 MCG TAB PO SCH (06:45)
[2016-06-12] MEDS: DOCUSATE SODIUM 100 MG CAP PO SCH (08:01)
[2016-06-12] MEDS: IBUPROFEN 600 MG TAB PO SCH ×3 (08:01→19:45)
--- NOTE | 2016-06-12 08:25 | Hematology/Oncology Prog Note ---
Hematology/Onc Progress Note Date of Service Jun 12, 2016. Diagnoses Anal carcinoma Medications Medications Administered Medications (Trade) Dose Ordered Sig/Lucho Route Start Time Stop Time Status Last Admin Dose Admin Diphenhydramine HCl (Benadryl Cap) 25 mg HS PO 06/10/16 21:00 07/10/16 20:59 06/11/16 20:58 25 MG Docusate Sodium (coLACE CAP) 200 mg DAILY PO 06/11/16 08:00 07/11/16 07:59 06/12/16 08:01 200 MG Ibuprofen (Motrin Tab) 600 mg TID PO 06/10/16 14:00 07/10/16 13:59 06/12/16 08:01 600 MG Levothyroxine Sodium (Synthroid Tab) 125 mcg DAILYBB PO 06/11/16 06:30 07/11/16 06:29 06/12/16 06:45 125 MCG Ondansetron HCl (Zofran Tab) 16 mg TODAY@1700 PO 06/10/16 17:00 06/10/16 23:00 DC 06/10/16 17:10 16 MG Dexamethasone 10 mg 10 mg TODAY@1700 PO 06/10/16 17:00 06/10/16 23:00 DC 06/10/16 17:11 10 MG Mitomycin 18 mg/ Sodium Chloride 118 ml @ 236 mls/hr TODAY@1730 IV 06/10/16 17:30 06/10/16 19:00 DC 06/10/16 18:49 236 MLS/HR Fluorouracil/ Sodium Chloride (Fluorouracil/ Nss 1000ml) 1,038 ml @ 43.285 mls/ hr DAILY@1800 IV 06/10/16 18:00 06/14/16 17:59 06/11/16 20:53 43.285 MLS/HR Subjective . He continues to do well. Denies nausea or vomiting. Continues infuse 5-FU is ongoing as is daily radiation Review of Systems: Constitutional: Negative for night sweats, or fever Eyes: Negative for event change of vision ENT: Negative for epistaxis, nasal discharge, sore throat, or deafness Cardiovascular: Negative for chest pain, palpitations, dizziness, diaphoresis Respiratory: Negative for new shortness of breath,hemoptysis, or purulent cough Gastrointestinal: Negative for diarrhea, hematemesis, melena, nausea, vomiting , or dyspepsia Integumentary (skin): Negative for rash or jaundice discoloration Genitourinary: Negative for urinary frequency, hematuria, or dysuria Neurological: Negative for weakness, seizure activity, headache, or dizziness Lymphatic/Hematologic: Negative for petechiae, bleeding or new adenopathy Musculoskeletal: Negative for new joint or back pain Allergic/Immunologic: Negative for unusual rash or pruritis. Vital Signs Vital Signs Past 12 Hours Date Time Temp Pulse Resp B/P Pulse Ox O2 Delivery O2 Flow Rate FiO2 06/12/16 07:41 36.5 86 18 109/70 96 Room Air 06/12/16 03:15 36.8 62 20 119/68 96 Room Air 06/12/16 01:00 Room Air 06/12/16 00:10 36.7 66 18 111/60 96 Room Air 06/11/16 20:45 36.8 70 18 104/58 96 Room Air Physical Exam Constitutional: vitals are stable. Eyes: Eyes are BENY EOMI without conjuctival erythema or icterus. ENT: External examination was negative for masses. Neck: Negative for masses or palpable thyromegaly Respiratory: Lung sounds were generally clear bilaterally Cardiovascular: Heart was RRR without significant murmur, gallops aoe rubs Gastrointestinal: No palpable hepatic or splenomegaly. The abdomen was soft with normal bowel sounds. Lymphatic system: there was no palpable peripheral lymphadenopathy Musculoskeletal System: The musculoskeletal system seemed concordant with age. Skin: The skin was negative for jaundice. Neurologic exam: The exam was negative for any focal findings. Deep tendon reflexes were equal and symmetrical. Psychiatric exam: Was essentially negative with normal mood and effect. Extremities: Negative for edema or erythema Laboratory Last 24 Hours Test 06/11/16 08:31 06/12/16 05:10 White Blood Count 9.14 K/uL 7.31 K/uL Red Blood Count 4.86 M/uL 4.27 M/uL Hemoglobin 13.6 g/dL 12.0 g/dL Hematocrit 39.6 % 35.8 % Mean Corpuscular Volume 81.5 fL 83.8 fL Mean Corpuscular Hemoglobin 28.0 pg 28.1 pg Mean Corpuscular Hemoglobin Concent 34.3 g/dl 33.5 g/dl Platelet Count 197 K/uL 166 K/uL Mean Platelet Volume 7.9 fL 8.3 fL Neutrophils (%) (Auto) 88.9 % 67.6 % Lymphocytes (%) (Auto) 7.9 % 23.3 % Monocytes (%) (Auto) 3.1 % 7.5 % Eosinophils (%) (Auto) 0.0 % 1.2 % Basophils (%) (Auto) 0.0 % 0.3 % Neutrophils # (Auto) 8.13 K/uL 4.94 K/uL Lymphocytes # (Auto) 0.72 K/uL 1.70 K/uL Monocytes # (Auto) 0.28 K/uL 0.55 K/uL Eosinophils # (Auto) 0.00 K/uL 0.09 K/uL Basophils # (Auto) 0.00 K/uL 0.02 K/uL RDW Standard Deviation 45.9 fL 48.5 fL RDW Coefficient of Variation 15.3 % 15.8 % Immature Granulocyte % (Auto) 0.1 % 0.1 % Immature Granulocyte # (Auto) 0.01 K/uL 0.01 K/uL Sodium Level 137 mmol/L 143 mmol/L Potassium Level 4.2 mmol/L 4.2 mmol/L Chloride Level 102 mmol/L 108 mmol/L Carbon Dioxide Level 27 mmol/L 28 mmol/L Anion Gap 8.0 mmol/L 7.0 mmol/L Blood Urea Nitrogen 11 mg/dl 16 mg/dl Creatinine 0.83 mg/dl 0.76 mg/dl Est Creatinine Clear Calc Drug Dose 93.8 ml/min 102.5 ml/min Estimated GFR () 112.4 116.6 Estimated GFR (Non- 97.0 100.6 BUN/Creatinine Ratio 12.7 20.4 Random Glucose 165 mg/dl 85 mg/dl Calcium Level 9.4 mg/dl 8.0 mg/dl Assessment & Plan Anal carcinoma receiving 5-FU and mitomycin along with concurrent radiation therapy. Day #2-3. He is doing well. I would like to see him get out of bed a little bit more at least sit in a bedside chair. Otherwise his blood work looks stable. I suspect we'll be done with his therapy about mid-day Friday. He 'll have a follow-up in our clinic in 3-4 weeks
--- NOTE | 2016-06-12 19:39 | Hospitalist Progress Note ---
Hospitalist Progress Note Date of Service Jun 12, 2016. Subjective Pt evaluation today including: conversation w/ patient no complaints All Other Systems: Reviewed and Negative Objective Vital Signs Date Time Temp Pulse Resp B/P Pulse Ox O2 Delivery O2 Flow Rate FiO2 06/12/16 15:22 95 Room Air 06/12/16 15:05 36.8 63 20 100/63 95 Room Air 06/12/16 11:42 36.8 73 20 102/65 94 Room Air 06/12/16 08:30 96 Room Air 06/12/16 07:41 36.5 86 18 109/70 96 Room Air 06/12/16 03:15 36.8 62 20 119/68 96 Room Air 06/12/16 01:00 Room Air 06/12/16 00:10 36.7 66 18 111/60 96 Room Air 06/11/16 20:45 36.8 70 18 104/58 96 Room Air 06/11/16 20:05 36.7 66 20 107/63 96 06/11/16 20:01 Room Air Physical Exam General Appearance: WD/WN, no apparent distress Eyes: normal inspection ENT: hearing grossly normal Neck: trachea midline Respiratory/Chest: chest non-tender, lungs clear Cardiovascular: regular rate, rhythm, no edema Abdomen: normal bowel sounds Extremities: normal range of motion Neurologic/Psychiatric: alert, normal mood/affect Laboratory Results Last 24 Hours Test 06/12/16 05:10 White Blood Count 7.31 K/uL Red Blood Count 4.27 M/uL Hemoglobin 12.0 g/dL Hematocrit 35.8 % Mean Corpuscular Volume 83.8 fL Mean Corpuscular Hemoglobin 28.1 pg Mean Corpuscular Hemoglobin Concent 33.5 g/dl Platelet Count 166 K/uL Mean Platelet Volume 8.3 fL Neutrophils (%) (Auto) 67.6 % Lymphocytes (%) (Auto) 23.3 % Monocytes (%) (Auto) 7.5 % Eosinophils (%) (Auto) 1.2 % Basophils (%) (Auto) 0.3 % Neutrophils # (Auto) 4.94 K/uL Lymphocytes # (Auto) 1.70 K/uL Monocytes # (Auto) 0.55 K/uL Eosinophils # (Auto) 0.09 K/uL Basophils # (Auto) 0.02 K/uL RDW Standard Deviation 48.5 fL RDW Coefficient of Variation 15.8 % Immature Granulocyte % (Auto) 0.1 % Immature Granulocyte # (Auto) 0.01 K/uL Sodium Level 143 mmol/L Potassium Level 4.2 mmol/L Chloride Level 108 mmol/L Carbon Dioxide Level 28 mmol/L Anion Gap 7.0 mmol/L Blood Urea Nitrogen 16 mg/dl Creatinine 0.76 mg/dl Est Creatinine Clear Calc Drug Dose 102.5 ml/min Estimated GFR () 116.6 Estimated GFR (Non- 100.6 BUN/Creatinine Ratio 20.4 Random Glucose 85 mg/dl Calcium Level 8.0 mg/dl Assessment and Plan (1) Anal carcinoma Assessment & Plan: will continue present tx (2) Advance care planning will discuss with patient prior to discharge
[2016-06-12] MEDS: FLUOROURACIL IV SCH (20:52)
[2016-06-12] MEDS: SODIUM CHLORIDE 0.9% IV SCH (20:52)
[2016-06-13] VITALS (7 sets, daily range): BP systolic 104–124; BP diastolic 68–80; PULSE 63–78; TEMP 36.4–36.9; O2SAT 95–97
[2016-06-13 05:37] LABS: BASO % 0.4 %; BASO ABS # 0.02 K/uL (0-0.2); COMPLETE YES; EOS % 3.7 %; HEMATOCRIT 36.4 % (42-52); IG% 0.2 %; LYMPH % 21.9 %; LYMPH ABS # 1.07 K/uL (1.2-3.4); MEAN CELL VOLUME 84.3 fL (80-100); MEAN CORPUSCULAR HEMOGLOBIN 28.5 pg (25-34); MEAN CORPUSCULAR HGB CONC 33.8 g/dl (32-36); MEAN PLATELET VOLUME 8.3 fL (7.4-10.4); MONO % 4.5 %; NEUT % 69.3 %; PLATELET COUNT 168 K/uL (130-400); RED BLOOD COUNT 4.32 M/uL (4.7-6.1); WHITE BLOOD COUNT 4.88 K/uL (4.8-10.8)
[2016-06-13] MEDS: LEVOTHYROXINE 125 MCG TAB PO SCH (05:54)
[2016-06-13] MEDS: DOCUSATE SODIUM 100 MG CAP PO SCH (06:06)
[2016-06-13 06:10] LABS: BUN/CREATININE RATIO 19.7 (10-20); CALCIUM 8.1 mg/dl (8.5-10.1); CREATININE 0.71 mg/dl (0.60-1.40); POTASSIUM 4.4 mmol/L (3.5-5.1)
[2016-06-13] MEDS: IBUPROFEN 600 MG TAB PO SCH ×3 (07:30→20:25)
--- NOTE | 2016-06-13 08:34 | Hematology/Oncology Prog Note ---
Hematology/Onc Progress Note Date of Service Jun 13, 2016. Diagnoses Anal carcinoma Medications Medications Administered Medications (Trade) Dose Ordered Sig/Lucho Route Start Time Stop Time Status Last Admin Dose Admin Diphenhydramine HCl (Benadryl Cap) 25 mg HS PO 06/10/16 21:00 07/10/16 20:59 06/12/16 21:04 25 MG Docusate Sodium (coLACE CAP) 200 mg DAILY PO 06/11/16 08:00 07/11/16 07:59 06/13/16 06:06 200 MG Ibuprofen (Motrin Tab) 600 mg TID PO 06/10/16 14:00 07/10/16 13:59 06/13/16 07:30 600 MG Levothyroxine Sodium (Synthroid Tab) 125 mcg DAILYBB PO 06/11/16 06:30 07/11/16 06:29 06/13/16 05:54 125 MCG Bisacodyl (Dulcolax Tab) 5 mg DAILY PRN PO 06/10/16 14:45 07/10/16 14:44 06/13/16 07:44 5 MG Ondansetron HCl (Zofran Tab) 16 mg TODAY@1700 PO 06/10/16 17:00 06/10/16 23:00 DC 06/10/16 17:10 16 MG Dexamethasone 10 mg 10 mg TODAY@1700 PO 06/10/16 17:00 06/10/16 23:00 DC 06/10/16 17:11 10 MG Mitomycin 18 mg/ Sodium Chloride 118 ml @ 236 mls/hr TODAY@1730 IV 06/10/16 17:30 06/10/16 19:00 DC 06/10/16 18:49 236 MLS/HR Fluorouracil/ Sodium Chloride (Fluorouracil/ Nss 1000ml) 1,038 ml @ 43.285 mls/ hr DAILY@1800 IV 06/10/16 18:00 06/14/16 17:59 06/12/16 20:52 43.285 MLS/HR Subjective Continues to do well. Tolerating the chemotherapy well. Has no new complaints Review of Systems: Constitutional: Negative for, night sweats, or fever Eyes: Negative for event change of vision ENT: Negative for epistaxis, nasal discharge, sore throat, or deafness Cardiovascular: Negative for chest pain, palpitations, dizziness, diaphoresis Respiratory: Negative for new shortness of breath,hemoptysis, or purulent cough Gastrointestinal: Negative for diarrhea, hematemesis, melena, nausea, vomiting , or dyspepsia Integumentary (skin): Negative for rash or jaundice discoloration Genitourinary: Negative for urinary frequency, hematuria, or dysuria Neurological: Negative for weakness, seizure activity, headache, or dizziness Lymphatic/Hematologic: Negative for petechiae, bleeding or new adenopathy Musculoskeletal: Negative for new joint or back pain Allergic/Immunologic: Negative for unusual rash or pruritis. Vital Signs Vital Signs Past 12 Hours Date Time Temp Pulse Resp B/P Pulse Ox O2 Delivery O2 Flow Rate FiO2 06/13/16 07:56 36.8 72 16 112/72 97 Room Air 06/13/16 00:13 36.7 66 20 111/68 96 Room Air 06/13/16 00:01 Room Air 06/12/16 21:05 Room Air 06/12/16 20:53 36.8 72 18 100/65 97 Room Air Physical Exam Constitutional: vitals are stable. Eyes: Eyes are BENY EOMI without conjuctival erythema or icterus. ENT: External examination was negative for masses. Neck: Negative for masses or palpable thyromegaly Respiratory: Lung sounds were generally clear bilaterally Cardiovascular: Heart was RRR without significant murmur, gallops aoe rubs Gastrointestinal: No palpable hepatic or splenomegaly. The abdomen was soft with normal bowel sounds. Lymphatic system: there was no palpable peripheral lymphadenopathy Musculoskeletal System: The musculoskeletal system seemed concordant with age. Skin: The skin was negative for jaundice. Neurologic exam: The exam was negative for any focal findings. Deep tendon reflexes were equal and symmetrical. Psychiatric exam: Was essentially negative with normal mood and effect. Extremities: Negative for edema or erythema Laboratory Last 24 Hours Test 06/13/16 05:04 White Blood Count 4.88 K/uL Red Blood Count 4.32 M/uL Hemoglobin 12.3 g/dL Hematocrit 36.4 % Mean Corpuscular Volume 84.3 fL Mean Corpuscular Hemoglobin 28.5 pg Mean Corpuscular Hemoglobin Concent 33.8 g/dl Platelet Count 168 K/uL Mean Platelet Volume 8.3 fL Neutrophils (%) (Auto) 69.3 % Lymphocytes (%) (Auto) 21.9 % Monocytes (%) (Auto) 4.5 % Eosinophils (%) (Auto) 3.7 % Basophils (%) (Auto) 0.4 % Neutrophils # (Auto) 3.38 K/uL Lymphocytes # (Auto) 1.07 K/uL Monocytes # (Auto) 0.22 K/uL Eosinophils # (Auto) 0.18 K/uL Basophils # (Auto) 0.02 K/uL RDW Standard Deviation 48.4 fL RDW Coefficient of Variation 15.7 % Immature Granulocyte % (Auto) 0.2 % Immature Granulocyte # (Auto) 0.01 K/uL Sodium Level 141 mmol/L Potassium Level 4.4 mmol/L Chloride Level 108 mmol/L Carbon Dioxide Level 28 mmol/L Anion Gap 5.0 mmol/L Blood Urea Nitrogen 14 mg/dl Creatinine 0.71 mg/dl Est Creatinine Clear Calc Drug Dose 109.7 ml/min Estimated GFR () 119.9 Estimated GFR (Non- 103.4 BUN/Creatinine Ratio 19.7 Random Glucose 82 mg/dl Calcium Level 8.1 mg/dl Assessment & Plan Anal carcinoma receiving 5-FU and mitomycin along with concurrent radiation therapy. Day 3-4. He is doing well. Hopefully we'll be finish late tomorrow. He 'll have a follow-up in our clinic in about 2-3 weeks in anticipation of a readmission for his next course of 5-FU.
[2016-06-13] MEDS: FLUOROURACIL IV SCH (20:46)
[2016-06-13] MEDS: SODIUM CHLORIDE 0.9% IV SCH (20:46)
[2016-06-14 05:59] LABS: BASO % 0.4 %; BASO ABS # 0.02 K/uL (0-0.2); COMPLETE YES; EOS % 4.6 %; HEMATOCRIT 35.8 % (42-52); IG% 0.2 %; LYMPH % 16.5 %; LYMPH ABS # 0.79 K/uL (1.2-3.4); MEAN CELL VOLUME 81.9 fL (80-100); MEAN CORPUSCULAR HEMOGLOBIN 28.4 pg (25-34); MEAN CORPUSCULAR HGB CONC 34.6 g/dl (32-36); MEAN PLATELET VOLUME 8.2 fL (7.4-10.4); MONO % 2.5 %; NEUT % 75.8 %; PLATELET COUNT 171 K/uL (130-400); RED BLOOD COUNT 4.37 M/uL (4.7-6.1); WHITE BLOOD COUNT 4.78 K/uL (4.8-10.8)
[2016-06-14 06:35] LABS: BUN/CREATININE RATIO 20.3 (10-20); CALCIUM 8.1 mg/dl (8.5-10.1); CREATININE 0.65 mg/dl (0.60-1.40); POTASSIUM 4.3 mmol/L (3.5-5.1)
[2016-06-14] MEDS: LEVOTHYROXINE 125 MCG TAB PO SCH (06:44)
[2016-06-14 07:22] VITALS: BP 118/72; PULSE 67; TEMP 36.7; O2SAT 96
--- NOTE | 2016-06-14 07:50 | Hematology/Oncology Prog Note ---
Hematology/Onc Progress Note Date of Service Jun 14, 2016. Diagnoses Anal carcinoma Medications Medications Administered Medications (Trade) Dose Ordered Sig/Lucho Route Start Time Stop Time Status Last Admin Dose Admin Diphenhydramine HCl (Benadryl Cap) 25 mg HS PO 06/10/16 21:00 07/10/16 20:59 06/13/16 20:24 25 MG Docusate Sodium (coLACE CAP) 200 mg DAILY PO 06/11/16 08:00 07/11/16 07:59 06/13/16 06:06 200 MG Ibuprofen (Motrin Tab) 600 mg TID PO 06/10/16 14:00 07/10/16 13:59 06/13/16 20:25 600 MG Levothyroxine Sodium (Synthroid Tab) 125 mcg DAILYBB PO 06/11/16 06:30 07/11/16 06:29 06/14/16 06:44 125 MCG Bisacodyl (Dulcolax Tab) 5 mg DAILY PRN PO 06/10/16 14:45 07/10/16 14:44 06/13/16 07:44 5 MG Ondansetron HCl (Zofran Tab) 16 mg TODAY@1700 PO 06/10/16 17:00 06/10/16 23:00 DC 06/10/16 17:10 16 MG Dexamethasone 10 mg 10 mg TODAY@1700 PO 06/10/16 17:00 06/10/16 23:00 DC 06/10/16 17:11 10 MG Mitomycin 18 mg/ Sodium Chloride 118 ml @ 236 mls/hr TODAY@1730 IV 06/10/16 17:30 06/10/16 19:00 DC 06/10/16 18:49 236 MLS/HR Fluorouracil/ Sodium Chloride (Fluorouracil/ Nss 1000ml) 1,038 ml @ 43.285 mls/ hr DAILY@1800 IV 06/10/16 18:00 06/14/16 17:59 06/13/16 20:46 43.285 MLS/HR Subjective Continues to do well. Tolerating the chemotherapy well. Having some mild excess tearing or lacrimation probably due to 5-FU Review of Systems: Constitutional: Negative for night sweats, or fever Eyes: Negative for event change of vision ENT: Negative for epistaxis, nasal discharge, sore throat, or deafness Cardiovascular: Negative for chest pain, palpitations, dizziness, diaphoresis Respiratory: Negative for new shortness of breath,hemoptysis, or purulent cough Gastrointestinal: Negative for diarrhea, hematemesis, melena, nausea, vomiting , or dyspepsia Integumentary (skin): Negative for rash or jaundice discoloration Genitourinary: Negative for urinary frequency, hematuria, or dysuria Neurological: Negative for weakness, seizure activity, headache, or dizziness Lymphatic/Hematologic: Negative for petechiae, bleeding or new adenopathy Musculoskeletal: Negative for new joint or back pain Allergic/Immunologic: Negative for unusual rash or pruritis. Vital Signs Vital Signs Past 12 Hours Date Time Temp Pulse Resp B/P Pulse Ox O2 Delivery O2 Flow Rate FiO2 06/14/16 07:22 36.7 67 16 118/72 96 Room Air 06/14/16 00:02 Room Air 06/13/16 23:14 36.7 70 18 104/73 06/13/16 20:45 36.7 67 20 124/73 97 Room Air 06/13/16 20:04 Room Air 06/13/16 19:53 36.6 63 18 118/76 97 Room Air Physical Exam Constitutional: vitals are stable. Eyes: Eyes are BENY EOMI without conjuctival erythema or icterus. ENT: External examination was negative for masses. Neck: Negative for masses or palpable thyromegaly Respiratory: Lung sounds were generally clear bilaterally Cardiovascular: Heart was RRR without significant murmur, gallops aoe rubs Gastrointestinal: No palpable hepatic or splenomegaly. The abdomen was soft with normal bowel sounds. Lymphatic system: there was no palpable peripheral lymphadenopathy Musculoskeletal System: The musculoskeletal system seemed concordant with age. Skin: The skin was negative for jaundice. Neurologic exam: The exam was negative for any focal findings. Deep tendon reflexes were equal and symmetrical. Psychiatric exam: Was essentially negative with normal mood and effect. Extremities: Negative for edema erythema Laboratory Last 24 Hours Test 06/14/16 05:22 White Blood Count 4.78 K/uL Red Blood Count 4.37 M/uL Hemoglobin 12.4 g/dL Hematocrit 35.8 % Mean Corpuscular Volume 81.9 fL Mean Corpuscular Hemoglobin 28.4 pg Mean Corpuscular Hemoglobin Concent 34.6 g/dl Platelet Count 171 K/uL Mean Platelet Volume 8.2 fL Neutrophils (%) (Auto) 75.8 % Lymphocytes (%) (Auto) 16.5 % Monocytes (%) (Auto) 2.5 % Eosinophils (%) (Auto) 4.6 % Basophils (%) (Auto) 0.4 % Neutrophils # (Auto) 3.62 K/uL Lymphocytes # (Auto) 0.79 K/uL Monocytes # (Auto) 0.12 K/uL Eosinophils # (Auto) 0.22 K/uL Basophils # (Auto) 0.02 K/uL RDW Standard Deviation 46.8 fL RDW Coefficient of Variation 15.5 % Immature Granulocyte % (Auto) 0.2 % Immature Granulocyte # (Auto) 0.01 K/uL Sodium Level 141 mmol/L Potassium Level 4.3 mmol/L Chloride Level 107 mmol/L Carbon Dioxide Level 29 mmol/L Anion Gap 5.0 mmol/L Blood Urea Nitrogen 13 mg/dl Creatinine 0.65 mg/dl Est Creatinine Clear Calc Drug Dose 119.8 ml/min Estimated GFR () 124.3 Estimated GFR (Non- 107.2 BUN/Creatinine Ratio 20.3 Random Glucose 86 mg/dl Calcium Level 8.1 mg/dl Assessment & Plan Anal carcinoma receiving 5-FU and mitomycin along with concurrent radiation therapy. Day 4. He is doing well. It appears to be finished with his 5-FU around 8:00 this evening. He can then be discharged probably tomorrow morning. We will arrange for follow-up in our clinic for the next continuously infused course of 5-FU which will be in about 3-4 weeks. Thank you for your help. For now we will sign off but of course please don't hesitate contact us if he could be of any help with any issues that we might be able to address prior to discharge.
[2016-06-14] MEDS: DOCUSATE SODIUM 100 MG CAP PO SCH (08:16)
[2016-06-14] MEDS: IBUPROFEN 600 MG TAB PO SCH ×3 (08:16→20:14)
[2016-06-14 11:11] VITALS: BP 107/70; PULSE 70; TEMP 36.8; O2SAT 97
--- NOTE | 2016-06-14 12:31 | Hospitalist Progress Note ---
Hospitalist Progress Note Date of Service Jun 13, 2016. Subjective Pt evaluation today including: conversation w/ patient No complaints All Other Systems: Reviewed and Negative Objective Vital Signs Date Time Temp Pulse Resp B/P Pulse Ox O2 Delivery O2 Flow Rate FiO2 06/14/16 11:11 36.8 70 18 107/70 97 Room Air 06/14/16 08:00 Room Air 06/14/16 07:22 36.7 67 16 118/72 96 Room Air 06/14/16 00:02 Room Air 06/13/16 23:14 36.7 70 18 104/73 06/13/16 20:45 36.7 67 20 124/73 97 Room Air 06/13/16 20:04 Room Air 06/13/16 19:53 36.6 63 18 118/76 97 Room Air 06/13/16 16:28 36.9 72 16 107/68 95 06/13/16 16:00 Room Air Physical Exam General Appearance: no apparent distress Eyes: normal inspection, sclerae normal Neck: trachea midline Respiratory/Chest: lungs clear Cardiovascular: regular rate, rhythm Abdomen: normal bowel sounds Laboratory Results Last 24 Hours Test 06/14/16 05:22 White Blood Count 4.78 K/uL Red Blood Count 4.37 M/uL Hemoglobin 12.4 g/dL Hematocrit 35.8 % Mean Corpuscular Volume 81.9 fL Mean Corpuscular Hemoglobin 28.4 pg Mean Corpuscular Hemoglobin Concent 34.6 g/dl Platelet Count 171 K/uL Mean Platelet Volume 8.2 fL Neutrophils (%) (Auto) 75.8 % Lymphocytes (%) (Auto) 16.5 % Monocytes (%) (Auto) 2.5 % Eosinophils (%) (Auto) 4.6 % Basophils (%) (Auto) 0.4 % Neutrophils # (Auto) 3.62 K/uL Lymphocytes # (Auto) 0.79 K/uL Monocytes # (Auto) 0.12 K/uL Eosinophils # (Auto) 0.22 K/uL Basophils # (Auto) 0.02 K/uL RDW Standard Deviation 46.8 fL RDW Coefficient of Variation 15.5 % Immature Granulocyte % (Auto) 0.2 % Immature Granulocyte # (Auto) 0.01 K/uL Sodium Level 141 mmol/L Potassium Level 4.3 mmol/L Chloride Level 107 mmol/L Carbon Dioxide Level 29 mmol/L Anion Gap 5.0 mmol/L Blood Urea Nitrogen 13 mg/dl Creatinine 0.65 mg/dl Est Creatinine Clear Calc Drug Dose 119.8 ml/min Estimated GFR () 124.3 Estimated GFR (Non- 107.2 BUN/Creatinine Ratio 20.3 Random Glucose 86 mg/dl Calcium Level 8.1 mg/dl Assessment and Plan (1) Anal carcinoma Assessment & Plan: Continue inpatient 5FU monitior for symptoms (2) Advance care planning will discuss with patient prior to discharge
--- NOTE | 2016-06-14 12:37 | Hospitalist Progress Note ---
Hospitalist Progress Note Date of Service Jun 14, 2016. Subjective Pt evaluation today including: conversation w/ patient Objective Vital Signs Date Time Temp Pulse Resp B/P Pulse Ox O2 Delivery O2 Flow Rate FiO2 06/14/16 11:11 36.8 70 18 107/70 97 Room Air 06/14/16 08:00 Room Air 06/14/16 07:22 36.7 67 16 118/72 96 Room Air 06/14/16 00:02 Room Air 06/13/16 23:14 36.7 70 18 104/73 06/13/16 20:45 36.7 67 20 124/73 97 Room Air 06/13/16 20:04 Room Air 06/13/16 19:53 36.6 63 18 118/76 97 Room Air 06/13/16 16:28 36.9 72 16 107/68 95 06/13/16 16:00 Room Air Physical Exam General Appearance: no apparent distress Eyes: sclerae normal Neck: trachea midline Respiratory/Chest: lungs clear Cardiovascular: regular rate, rhythm Abdomen: normal bowel sounds Extremities: normal range of motion Laboratory Results Last 24 Hours Test 06/14/16 05:22 White Blood Count 4.78 K/uL Red Blood Count 4.37 M/uL Hemoglobin 12.4 g/dL Hematocrit 35.8 % Mean Corpuscular Volume 81.9 fL Mean Corpuscular Hemoglobin 28.4 pg Mean Corpuscular Hemoglobin Concent 34.6 g/dl Platelet Count 171 K/uL Mean Platelet Volume 8.2 fL Neutrophils (%) (Auto) 75.8 % Lymphocytes (%) (Auto) 16.5 % Monocytes (%) (Auto) 2.5 % Eosinophils (%) (Auto) 4.6 % Basophils (%) (Auto) 0.4 % Neutrophils # (Auto) 3.62 K/uL Lymphocytes # (Auto) 0.79 K/uL Monocytes # (Auto) 0.12 K/uL Eosinophils # (Auto) 0.22 K/uL Basophils # (Auto) 0.02 K/uL RDW Standard Deviation 46.8 fL RDW Coefficient of Variation 15.5 % Immature Granulocyte % (Auto) 0.2 % Immature Granulocyte # (Auto) 0.01 K/uL Sodium Level 141 mmol/L Potassium Level 4.3 mmol/L Chloride Level 107 mmol/L Carbon Dioxide Level 29 mmol/L Anion Gap 5.0 mmol/L Blood Urea Nitrogen 13 mg/dl Creatinine 0.65 mg/dl Est Creatinine Clear Calc Drug Dose 119.8 ml/min Estimated GFR () 124.3 Estimated GFR (Non- 107.2 BUN/Creatinine Ratio 20.3 Random Glucose 86 mg/dl Calcium Level 8.1 mg/dl Assessment and Plan (1) Anal carcinoma Assessment & Plan: Treatment will be done tonight at 8 pm dc on 06/15 if no problems (2) Advance care planning (3) DVT prophylaxis Assessment & Plan: lovenox 40 sq daily will discuss with patient prior to discharge
[2016-06-14] MEDS ORDERED: ENOXAPARIN 40 MG/0.4 ML SYR SQ ONE (12:45)
[2016-06-14 15:21] VITALS: BP 112/70; PULSE 73; TEMP 36.8; O2SAT 95
[2016-06-14 19:21] VITALS: BP 120/76; PULSE 72; TEMP 36.7; O2SAT 95
[2016-06-14 23:59] VITALS: BP 123/77; PULSE 67; TEMP 36.7; O2SAT 97
[2016-06-15 04:05] VITALS: BP 112/68; PULSE 65; TEMP 36.7; O2SAT 96
[2016-06-15 06:08] LABS: BASO % 0.3 %; BASO ABS # 0.01 K/uL (0-0.2); COMPLETE YES; EOS % 4.8 %; HEMATOCRIT 36.3 % (42-52); IG% 0.3 %; LYMPH ABS # 0.72 K/uL (1.2-3.4); MEAN CELL VOLUME 81.8 fL (80-100); MEAN CORPUSCULAR HEMOGLOBIN 28.2 pg (25-34); MEAN CORPUSCULAR HGB CONC 34.4 g/dl (32-36); MEAN PLATELET VOLUME 8.2 fL (7.4-10.4); MONO % 2.3 %; NEUT % 74.3 %; PLATELET COUNT 169 K/uL (130-400); RED BLOOD COUNT 4.44 M/uL (4.7-6.1); WHITE BLOOD COUNT 3.99 K/uL (4.8-10.8)
[2016-06-15] MEDS: DOCUSATE SODIUM 100 MG CAP PO SCH (06:20)
[2016-06-15] MEDS: LEVOTHYROXINE 125 MCG TAB PO SCH (06:20)
[2016-06-15 06:35] LABS: BUN/CREATININE RATIO 21.6 (10-20); CALCIUM 8.4 mg/dl (8.5-10.1); CREATININE 0.61 mg/dl (0.60-1.40); POTASSIUM 4.3 mmol/L (3.5-5.1)
[2016-06-15 07:25] VITALS: BP 118/71; PULSE 75; TEMP 36.7; O2SAT 97
[2016-06-15 08:00] VITALS: O2SAT 97
[2016-06-15] MEDS ORDERED: ENOXAPARIN 40 MG/0.4 ML SYR SQ SCH (08:00)
[2016-06-15] MEDS: IBUPROFEN 600 MG TAB PO SCH ×2 (08:04→14:20)
[2016-06-15 11:10] VITALS: BP 108/63; PULSE 83; TEMP 36.6; O2SAT 96
--- NOTE | 2016-06-15 13:19 | Discharge Instructions ---
Discharge Instructions Date of Service Jun 15, 2016. Admission Reason for Admission: Anal Cancer, Chemotherapy Discharge Discharge Diagnosis / Problem: Rectal CA Discharge Goals Goal(s): Improve function Activity Recommendations Activity Limitations: resume your previous activity . Instructions / Follow-Up Instructions / Follow-Up Oncology as directed Current Hospital Diet Patient's current hospital diet: Regular Diet Discharge Diet Recommended Diet: Regular Diet Pending Studies Studies pending at discharge: no Medical Emergencies . Who to Call and When: Medical Emergencies: If at any time you feel your situation is an emergency, please call 911 immediately. . Non-Emergent Contact Non-Emergency issues call your: Primary Care Provider . Past History Medical & Surgical History: (1) Anal carcinoma . "Provider Documentation" section prepared by Henrique Root. VTE Core Measure Inpt VTE Proph given/why not?: Fabricio Boyd, SCD's
--- NOTE | 2016-06-15 13:45 | Discharge Instructions ---
Discharge Instructions Date of Service Jun 15, 2016. Admission Reason for Admission: Anal Cancer, Chemotherapy Discharge Discharge Diagnosis / Problem: Squamous Cell rectal ca Discharge Goals Goal(s): Improve disease control Activity Recommendations Activity Limitations: resume your previous activity . Current Hospital Diet Patient's current hospital diet: Regular Diet Discharge Diet Recommended Diet: Regular Diet Pending Studies Studies pending at discharge: no Medical Emergencies . Who to Call and When: Medical Emergencies: If at any time you feel your situation is an emergency, please call 911 immediately. . Non-Emergent Contact Non-Emergency issues call your: Primary Care Provider . . "Provider Documentation" section prepared by Henrique Root. VTE Core Measure Inpt VTE Proph given/why not?: Fabricio Boyd, SCD's
[2016-06-15 14:03] VITALS: BP 108/63; PULSE 83; TEMP 36.6; O2SAT 96
[2016-06-17] MEDS ORDERED: MULT-506 PO (17:03)
--- NOTE | 2016-06-24 15:23 | DISCHARGE SUMMARY ---
Please see dictated H and P for full details. PRESENTATION: The patient is a 60-year-old who 2 years ago had hemorrhoidal issues. Biopsy showed basic squamous cell carcinoma. A PET scan confirmed a 7.8-cm mass in the distal rectal anal area and he was admitted for systemic therapy with radiation and he was seen by Dr. Gibran Ponce who recommended 4-day infusion of 5-fluorouracil along with 1 day of mitomycin with radiation therapy. The patient did well and tolerated his treatment without complications or side effects. He was incarcerated, so he was discharged back to the shelter on 06/15/2016 in stable condition. DISCHARGE DIAGNOSES: 1. Anal carcinoma, squamous cell. 2. Schizophrenia. 3. Hypothyroidism. 4. Benign prostatic hypertrophy. Time spent in review of the chart, discussion with the patient on the day of discharge, 35 minutes.
[2016-06-24] MEDS ORDERED: MOUTHWASH (17:44)
== END 2016-06-15 16:20 | disposition home or self-care (01) | DRG 847 ==
LOC: C.4E 12:25
PROVIDERS: ADMIT Internal Medicine; ATTEND Hospitalist
PROC: DW062ZZ Beam Radiation of Pelvic Region using Photons >10 MeV (ICD-10-PCS; 2016-06-10)
PROC: 3E04305 Introduction of Other Antineoplastic into Central Vein, Percutaneous Approach (ICD-10-PCS; principal; 2016-06-11)
PROC: DD0 Radiation Therapy, Gastrointestinal System, Beam Radiation (ICD-10-PCS; 2016-06-11)
PROC: DD0 Radiation Therapy, Gastrointestinal System, Beam Radiation (ICD-10-PCS; 2016-06-12)
PROC: DD0 Radiation Therapy, Gastrointestinal System, Beam Radiation (ICD-10-PCS; 2016-06-13)
PROC: DD0 Radiation Therapy, Gastrointestinal System, Beam Radiation (ICD-10-PCS; 2016-06-14)
DX: Z51.11 Encounter for antineoplastic chemotherapy (principal); C21.0 Malignant neoplasm of anus, unspecified; E03.9 Hypothyroidism, unspecified; F20.9 Schizophrenia, unspecified; K59.00 Constipation, unspecified; K64.9 Unspecified hemorrhoids; F17.200 Nicotine dependence, unspecified, uncomplicated; N40.0 Benign prostatic hyperplasia without lower urinary tract symptoms; Z51.0 Encounter for antineoplastic radiation therapy

== ENCOUNTER → 2016-12-18 | Outpatient (CLI) | payer OTHER ==
[~2016-12-18] MED LIST changes: -BND25CL PO; +MOUTHWASH; +MULT-506 PO; -PRAMCRE2; -[UNRECOGNIZED DRUG - CODE]
--- NOTE | 2016-12-18 12:10 | DIAGNOSTIC IMAGING REPORT ---
PET/CT SKULL-THIGH CLINICAL HISTORY: 60 years-old Male with COLORECTAL. Follow-up study in a patient with history of colorectal carcinoma. Subsequent treatment strategy. Status post chemoradiation ending in July 2016. COMPARISON: PET CT 05/06/2016, CT 05/30/2016 TECHNIQUE: The patient was injected with 14.38 mCi of F-18 fluorodeoxyglucose (FDG) and an emission scan was performed from the skull vertex to the toes. Noncontrast CT was performed for attenuation correction and anatomic localization. The blood glucose level was 80 mg/dl. FINDINGS: HEAD AND NECK: There is mildly increased radiotracer uptake within the thyroid, right greater than left without focal nodule seen on the CT. Otherwise, there is a physiologic distribution of activity, with no hypermetabolic foci. CHEST: There is a physiologic distribution of activity, with no hypermetabolic mediastinal, hilar or pulmonary foci. 6 x 5 mm noncalcified pulmonary nodule of the right middle lobe is again seen which appears unchanged from comparison, again with no associated increased metabolic activity. ABDOMEN AND PELVIS: There is decreased size of the previously noted soft tissue mass of the distal rectum and anus which now measures up to approximately 3.0 x 3.6 cm in AP and transverse dimension, previously 4.2 x 4.6 cm. Craniocaudal extent of the lesion is difficult to visualize secondary to markedly decreased FDG uptake with SUV max measured at approximately 2.2, previously 14.9. Otherwise, there is a physiologic distribution of activity within the liver, spleen, adrenal glands, and urinary tracts, with no new hypermetabolic foci. MUSCULOSKELETAL SYSTEM AND EXTREMITIES: There is a physiologic distribution of activity within the bone marrow, with no hypermetabolic foci. ADDITIONAL CT FINDINGS: Coronary arterial calcifications are noted. Symmetric moderate to severe bilateral gynecomastia. Mild centrilobular emphysema. There are a few groundglass bronchovascular distribution of opacities within the peripheral right upper lobe. No focal airspace consolidations. Minimal layering secretions within the trachea. Linear subsegmental atelectasis of the inferior segment lingula. No bowel obstruction. There is atherosclerosis of the aorta. Moderate to marked circumferential wall thickening of the urinary bladder is seen. There is mild stranding within the adjacent perivesicular tissues, likely posttherapeutic. Degenerative changes are seen throughout the spine. No suspicious lytic or blastic bony lesions IMPRESSION: 1. Findings compatible with positive response to therapy with markedly decreased size and metabolic activity of the rectal mass. 2. Unchanged 6 mm noncalcified pulmonary nodule of the right middle lobe again demonstrates no significant metabolic activity. This again may be below resolution in size for PET and warrants attention on follow-up. 3. Subsegmental bronchovascular distribution of peripheral groundglass opacities in the right upper lobe suggests mild pneumonitis. Background emphysema. 4. No evidence of metastatic disease. 5. Mildly increased radiotracer uptake of the thyroid may reflect background thyroiditis. This could be correlated with laboratory values and ultrasound. 6. Probable radiation cystitis. The above report was generated using voice recognition software. It may contain grammatical, syntax or spelling errors. Electronically signed by: Graham Rome M.D. 12/18/2016 12:09 PM Dictated Date/Time: 12/18/2016 11:49 AM
== END ==
LOC: C.PET 09:04
PROVIDERS: ATTEND Family Medicine
DX: C80.1 Malignant (primary) neoplasm, unspecified (principal)

== ENCOUNTER → 2017-06-02 | Outpatient (CLI) | payer OTHER ==
[~2017-06-02] MED LIST changes: -LEVO125T4 PO; +LEVO125T5 PO
--- NOTE | 2017-06-02 10:04 | DIAGNOSTIC IMAGING REPORT ---
PET/CT CLINICAL HISTORY: Colorectal carcinoma. COMPARISON STUDY: PET/CT dated 12/18/2016 and 05/06/2016. TECHNIQUE: One hour following the IV administration of 13.15 mCi of F-18 FDG, PET/CT examination was performed from the orbital meatal line through the bony pelvis. Noncontrast CT is performed for the purposes of anatomic correlation and attenuation correction. Note that this does not reflect a diagnostic CT examination. Images were reviewed on a separate [employer] independent workstation. Fused images were obtained. Standard uptake values reported are maximum values within the region of interest expressed in gm/mL. FINDINGS: PET FINDINGS: Head and neck: There is expected physiologic activity within the visualized brain parenchyma at the skull base and the salivary glands. Low level FDG activity is again seen in the thyroid gland. Thorax: Evaluation of the thorax demonstrates expected physiologic myocardial activity. A 6 mm right middle lobe pulmonary nodule on image #105 is unchanged from 05/06/2016. This was not demonstrably FDG avid but is too small for PET characterization. No new pulmonary nodule is seen. Abdomen and pelvis: There is expected activity within the liver, spleen, kidneys, renal collecting system, and bladder. Low-level bowel activity is likely within physical limits. There is only mild perirectal/perianal soft tissue thickening identified with minimal surrounding stranding. This is best seen on image #230. This demonstrates only faint FDG activity with a maximum SUV of 2.9. Unenhanced CT images: The partially visualized brain parenchyma the skull base is normal in appearance. The bony orbits are intact as imaged. Orbital contents are within normal limits. The visualized paranasal sinuses are clear. There is a trace right mastoid effusion. The salivary and thyroid glands are normal as imaged. No cervical adenopathy is identified. The heart is normal in size and without pericardial effusion. The coronary arteries are calcified. The thoracic aorta is normal in caliber. Emphysematous change is noted. No airspace consolidation or pleural effusion is seen. There is no mediastinal, hilar, or axillary lymphadenopathy. Calcified gallstones are noted. The unenhanced liver, spleen, pancreas, adrenal glands, and kidneys are grossly normal. The abdominal aorta is normal in caliber noting moderate atherosclerotic calcification. No bowel obstruction is identified. There is mild colonic diverticulosis without CT evidence of acute diverticulitis. Colonic fecal retention is observed. No intraperitoneal free air or abdominal ascites is seen. There is no abdominal, pelvic sidewall, or inguinal lymphadenopathy. The bladder, prostate, and seminal vesicles are normal as visualized. No lytic or blastic bony lesion is seen. IMPRESSION: 1. There is only minimal residual rectal soft tissue thickening with minimal perirectal and perianal stranding. This is nonspecific and may represent minimal residual tumor or treatment related change. 2. There is no evidence of FDG avid metastatic disease. 3. An indeterminant 6 mm right middle lobe pulmonary nodule is unchanged from 05/06/2016. 4. Emphysema. 5. Cholelithiasis. 6. Additional findings as above. Electronically signed by: Francisco Christianson M.D. 06/02/2017 10:03 AM Dictated Date/Time: 06/02/2017 9:45 AM
== END | disposition home or self-care (01) ==
LOC: C.PET 07:41
PROVIDERS: ATTEND Family Medicine
DX: C18.9 Malignant neoplasm of colon, unspecified (principal); C80.1 Malignant (primary) neoplasm, unspecified; C61 Malignant neoplasm of prostate